=== PATIENT | female | born 1970 | race Native Hawaiian/Other Pacific Islander ===

== ENCOUNTER → 2016-09-20 05:24 | Outpatient (CLI) | payer OTHER | END | disposition home or self-care (01) | LOC: AMB 05:24 | DX: E16.1 Other hypoglycemia (principal) ==

== ENCOUNTER 2016-09-20 11:26 | Outpatient (CLI) | payer OTHER | END 2016-09-20 11:48 | disposition short-term general hospital (02) | LOC: AMB 11:26 | DX: E16.1 Other hypoglycemia (principal) | CPT/HCPCS: A0425; A0427 ==

== ENCOUNTER 2016-09-20 12:04 | Emergency (ER) | payer OTHER ==
[~2016-09-20] VITALS: Ht 167.6 cm; Wt 72.1 kg
[2016-09-20 11:50] VITALS: TEMP 97.9
[2016-09-20 12:31] LABS: PLATELET COUNT 257 K/uL (152-353)
[2016-09-20 12:39] LABS: POTASSIUM 3.6 mmol/L (3.6-5.2); SODIUM 139 mmol/L (136-145)
[2016-09-20 13:19] VITALS: BP 138/82
== END 2016-09-20 13:19 | disposition home or self-care (01) ==
LOC: ED 12:04
DX: E16.1 Other hypoglycemia (principal)
CPT/HCPCS: 36415; 80053; 83036; 85027; 99283